=== PATIENT | female | born 1945 | race Caucasian/White ===

== ENCOUNTER 2023-11-02 14:33 | Emergency (ER) | payer MEDICARE, SELFPAY ==
--- NOTE | ~2023-11-02 | XR_ITS ---
EXAMINATION: XR ankle RT min 3V DATE: 11/02/2023 15:50 INDICATION: Right ankle pain. Injury. TECHNIQUE: 4 views of right ankle were obtained. COMPARISON: None. FINDINGS: There is an oblique fracture of distal fibula with medial aspect of the fracture line 2 mm proximal to the level of the tibial plafond. The distal fracture fragment demonstrates near-anatomic alignment. 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 There is mi ld osteoarthritis of the ankle joint and some of the midfoot joints. There are enthesophytes at the p osterior and plantar aspects of calcaneal tuberosity. IMPRESSION: 1. Oblique fracture of distal fibula. Reviewed, dictated and finalized at location A.
--- NOTE | ~2023-11-02 | XR_ITS ---
EXAMINATION: XR foot RT min 3V DATE: 11/02/2023 15:50 INDICATION: Lateral right ankle pain. TECHNIQUE: 4 views of right foot were obtained. COMPARISON: Right ankle radiographs 11/02/23 FINDINGS: There is moderate hallux valgus. There is an oblique fracture of distal fibula. There is he terotopic ossification distal to lateral malleolus, likely chronic. There is mild osteoarthritis of f irst metatarsophalangeal joint and some of the midfoot joints and interphalangeal joints. There are e nthesophytes at the posterior and plantar aspects of calcaneal tuberosity. IMPRESSION: 1. Oblique fracture of distal fibula. 2. Moderate hallux valgus. 3. Mild polyarticular osteoarthritis. Reviewed, dictated and finalized at location A.
--- NOTE | 2023-11-02 14:37 | ED.LOWEXIN ---
HPI - Extremity Injury (Lower) General Chief Complaint: Extremity Injury, Lower Stated Complaint: Right Knee/Ankle/Toe Injury Time Seen by Provider: 11/02/23 15:30 Source: patient and RN notes reviewed Mode of arrival: ambulatory Limitations: no limitations History of Present Illness HPI Narrative: 78-year-old female presents with concern for injury to her right lower extremity. She reports 2 days ago she caught her toe on a door threshold, disrupting her toenail causing her to fall. She is reporting any pain, ankle pain, toe pain. Reports disruption of the toenail. She reports she took ibuprofen. She is requesting pain medicine MD complaint: ankle injury and foot injury Related Data Home Medications Medication Instructions Recorded Confirmed amlodipine 5 mg tablet mg 11/02/23 dicyclomine 20 mg tablet mg 11/02/23 fluoxetine 20 mg capsule mg 11/02/23 metoprolol succinate 100 mg mg PO 11/02/23 tablet,extended release 24 hr olmesartan 20 mg tablet mg 11/02/23 pravastatin 80 mg tablet mg 11/02/23 Allergies Allergy/AdvReac Type Severity Reaction Status Date / Time No Known Allergies Allergy Verified 11/02/23 14:51 Review of Systems Review of Systems: CONSTITUTIONAL: Denies malaise, chills, sweats, or fever. SKIN: Denies rash or itching, open skin, laceration, abrasion, redness, warmth. Reports injury to the toenail the 1st digit of the right foot MUSCULOSKELETAL: Reports right foot, ankle, knee pain, swelling, bruising NEUROLOGIC: Denies numbness, weakness All systems reviewed & are unremarkable except as noted in HPI and below PMFSH Comments At time of signature, agree with nursing past medical, surgical, social and family history. There is no relevant family history pertinent to the presenting complaint Exam Narrative: GENERAL: Well-appearing, well-nourished, and in no acute distress. HEAD: Normocephalic, atraumatic. EYES: PERRLA, conjunctivae clear NECK: Supple. CHEST: Speaks in full sentences. No respiratory distress. HEART: Regular rate and rhythm. Normal and equal peripheral pulses. EXTREMITIES: General right lower extremity has normal strength and sensation, limited range of motion in the knee, ankle, digits likely related to pain. Moderate edema and ecchymosis noted to the foot and 1st digit, mild edema noted to the ankle. General foot and ankle tenderness, general knee tenderness without point tenderness. No skin tenting, no devitalized tissue or atrophy, no trophic changes, no obvious deformity, alignment normal, nearby joints and structures intact. Distal pulses palpable and equal bilaterally, skin warm, dry, pink. Capillary refill less than 3 seconds. SKIN: Warm, dry, no rash. The base of the nail bed the 1st digit of the right foot is partially disrupted NEURO: Alert and oriented x3. PSYCH: Normal mood and affect Course Course Emergency Course: Patient has distal fibula fracture, patient is 78 years old and does not feel like she can use crutches affectively. Patient has a walker at home. Through shared decision making with her caregiver it was decided to prescribe a walking boot to [facility], they will try to pick that up tonight, she will use her walker at home until she can see Orthopedics for further evaluation. She was given referral for Podiatry for her toenail injury with a prophylactic antibiotic prescribed. Patient and her caregiver is aware of diagnosis, understands and agrees to treatment plan. Anticipatory guidance given. Patient and her caregiver agrees to follow-up as directed and is aware of reasons to seek care at the emergency department. Portions of this record may have been created with voice recognition software Level of Care: Express Care Visit Vital Signs Vital signs: Vital Signs Temperature 97.7 F 11/02/23 14:47 Pulse Rate 57 L 11/02/23 14:47 Respiratory Rate 20 11/02/23 14:47 Blood Pressure 148/96 H 11/02/23 14:47 Pulse Oximetry 100
[2023-11-02 14:47] VITALS: BP 148/96; PULSE 57; RESP 20; TEMP 36.5; O2SAT 100
--- NOTE | 2023-11-02 15:52 | PC.NURSE ---
PT TAKEN TO RADIOLOGY IN WHEELCHAIR
== END 2023-11-02 16:34 | disposition home or self-care (01) ==
PROVIDERS: Emergency Provider Nurse Practitioner; PCP Family Medicine
DX: S99.921A Unspecified injury of right foot, initial encounter (principal); S82.831A Other fracture of upper and lower end of right fibula, initial encounter for closed fracture; W18.09XA Striking against other object with subsequent fall, initial encounter; I10 Essential (primary) hypertension
CPT/HCPCS: 73610; 73630; 99204; G0463